=== PATIENT | female | born 1985 | race Caucasian/White ===

== ENCOUNTER 2018-05-03 06:10 | Observation (INO) | payer BC ==
[~2018-05-03] VITALS: Ht 165.1 cm; Wt 78.4 kg
[~2018-05-03 06:10] MED LIST: IBUP-1222 PO; PREN1TAB60 PO
[2018-05-03] MEDS ORDERED: ONDANSETRON 2MG/ML, 2ML IVPush ONE (06:30)
[2018-05-03] MEDS ORDERED: SODIUM CHLORIDE FLUSH 10ML SYR IVF ONE (06:30)
[2018-05-03] MEDS ORDERED: MORPHINE SULFATE 4 MG/ML, 1ML IVPush PRN ×3 (06:30→13:30)
[2018-05-03] MEDS ORDERED: SODIUM CHLORIDE 0.9% 1,000ML IVBOLUS ONE (06:30)
[2018-05-03] MEDS ORDERED: ONDANSETRON ODT 4 MG ONE (06:36)
[2018-05-03] MEDS ORDERED: MORPHINE SULFATE 4 MG/ML, 1ML ONE ×2 (06:36→14:17)
[2018-05-03 06:47] LABS: BASOPHILS % (AUTO) 0 % (0-1); EOSINOPHILS # (AUTO) 0.02 x10^3/uL (0-0.4); EOSINOPHILS % (AUTO) 0 % (1-7); LYMPHOCYTES # (AUTO) 1.12 x10^3/uL (1-3.4); LYMPHOCYTES % (AUTO) 7 % (22-44); MD NO; MEAN CORPUSCULAR HEMOGLOBIN 30.4 pg (27.0-34.8); MEAN CORPUSCULAR HGB CONC 33.3 g/dL (32.4-35.8); MEAN CORPUSCULAR VOLUME 91.5 fL (80-100); MEAN PLATELET VOLUME 8.4 fL (7.4-10.4); MONOCYTES % (AUTO) 3 % (2-9); NEUTROPHILS # (AUTO) 13.56 x10^3/uL (1.8-6.8); NEUTROPHILS % (AUTO) 89 % (42-75); PLATELET COUNT 207 x10^3/uL (130-400); RED BLOOD COUNT 4.29 x10^6/uL (3.82-5.3)
[2018-05-03 06:58] LABS: ALANINE AMINOTRANSFERASE 23 U/L (12-78); ALBUMIN 3.8 g/dL (3.4-5.0); ANION GAP 8 mmol/L (5-15); CALCIUM 8.4 mg/dL (8.5-10.1); CHLORIDE 108 mmol/L (98-107); CREATININE 0.63 mg/dL (0.55-1.02)
[2018-05-03 07:03] LABS: ALKALINE PHOSPHATASE 71 U/L (45-117); BILIRUBIN,TOTAL 0.5 mg/dL (0.2-1.0); TOTAL PROTEIN 7.8 g/dL (6.4-8.2)
[2018-05-03 08:12] LABS: MICROSCOPIC INDICATED
[2018-05-03 08:26] LABS: CULTURE INDICATED? NO
[2018-05-03] MEDS ORDERED: OMNIPAQUE 350 MG/ML, 100ML BOTTLE ONE (08:35)
[2018-05-03] MEDS ORDERED: CEFOTETAN PMX 1GM/50ML 50 ML ONE (09:32)
[2018-05-03] MEDS ORDERED: CEFOTETAN PMX 1GM/50ML 50 ML IV ONE (10:00)
[2018-05-03] MEDS ORDERED: POTASSIUM CHLORIDE 20 MEQ in D5%-0.45% NACL 1,000 ML IV ONE (10:00)
[2018-05-03 10:02] VITALS: BP 91/58
[2018-05-03] MEDS: D5%-0.45NACL+KCL 20MEQ 1,000 ML IV SCH ×4 (11:48→23:57)
[2018-05-03] MEDS ORDERED: BUPIVACAINE/PF 0.5% ONE (12:10)
[2018-05-03] MEDS ORDERED: EPINEPHRINE 1 MG/ML, 1ML ONE (12:10)
[2018-05-03] MEDS ORDERED: FENTANYL PF 250 MCG/5ML ONE (12:18)
[2018-05-03] MEDS ORDERED: MIDAZOLAM 1 MG/ML, 2ML ONE (12:18)
[2018-05-03] MEDS ORDERED: ROCURONIUM 10 MG/ML,10ML ONE (12:47)
[2018-05-03] MEDS ORDERED: PROPOFOL 10 MG/ML, 20ML ONE (12:58)
[2018-05-03] MEDS ORDERED: DEXAMETHASONE 4 MG/ML, 1ML ONE ×2 (12:58)
[2018-05-03] MEDS ORDERED: SUCCINYLCHOLINE 20 MG/ML, 10ML ONE (12:58)
[2018-05-03] MEDS ORDERED: ONDANSETRON 2MG/ML, 2ML ONE ×2 (12:58)
[2018-05-03] MEDS ORDERED: ACETAMINOPHEN 325 MG TABLET PO PRN ×2 (13:30→14:00)
[2018-05-03] MEDS ORDERED: EPHEDRINE 50 MG/ML, 1ML IM PRN (13:30)
[2018-05-03] MEDS ORDERED: DIPHENHYDRAMINE 50 MG/ML, 1ML IVPush PRN (13:30)
[2018-05-03] MEDS ORDERED: ONDANSETRON ODT 8 MG PO PRN (13:30)
[2018-05-03] MEDS ORDERED: PROMETHAZINE 12.5 MG SUPP PR PRN (13:30)
[2018-05-03] MEDS ORDERED: MIDAZOLAM 1 MG/ML, 2ML IV PRN (13:30)
[2018-05-03] MEDS ORDERED: OXYcodone 5 MG/5 ML ORAL.SOL UDC PO PRN (13:30)
[2018-05-03] MEDS ORDERED: MEPERIDINE/PF 25MG/0.5ML IVPush PRN (13:30)
[2018-05-03] MEDS ORDERED: PROMETHAZINE 25 MG/ML, 1ML IV PRN (13:30)
[2018-05-03] MEDS ORDERED: EPHEDRINE 50 MG/ML, 1ML IVPush PRN (13:30)
[2018-05-03] MEDS ORDERED: ACETAMINOPHEN 650 MG/20.3 ML UDC ONE (13:50)
[2018-05-03] MEDS ORDERED: OXYcodone 5 MG/5 ML ORAL.SOL UDC ONE (13:50)
[2018-05-03] MEDS ORDERED: FENTANYL PF 100 MCG/2ML ONE (13:50)
[2018-05-03] MEDS: FENTANYL PF 100 MCG/2ML IV PRN ×2 (13:52→14:07)
[2018-05-03] MEDS ORDERED: morphine SULFATE 10 MG/ML, 1ML IVPush PRN (14:00)
[2018-05-03] MEDS ORDERED: PROMETHAZINE 25 MG/ML, 1ML IM PRN (14:00)
[2018-05-03] MEDS ORDERED: ONDANSETRON 2MG/ML, 2ML IVPush PRN (14:00)
[2018-05-03 14:45] VITALS: BP 92/60
[2018-05-03] MEDS: CEFOTETAN PMX 1GM/50ML 50 ML IVPB SCH ×2 (16:10→20:51)
[2018-05-03 18:43] VITALS: BP 90/57
[2018-05-03] MEDS: ONDANSETRON 2MG/ML, 2ML IVPush PRN (19:13)
[2018-05-04 02:00] VITALS: BP 96/54
[2018-05-04] MEDS: D5%-0.45NACL+KCL 20MEQ 1,000 ML IV SCH ×3 (03:00→09:20)
[2018-05-04] MEDS: OXYcodone/APAP 7.5/325MG TABLET PO PRN ×2 (03:10→09:07)
[2018-05-04] MEDS: ONDANSETRON 2MG/ML, 2ML IVPush PRN (03:10)
[2018-05-04 05:06] LABS: BASOPHILS % (AUTO) 0 % (0-1); EOSINOPHILS % (AUTO) 0 % (1-7); LYMPHOCYTES # (AUTO) 0.98 x10^3/uL (1-3.4); LYMPHOCYTES % (AUTO) 8 % (22-44); MD NO; MEAN CORPUSCULAR HEMOGLOBIN 30.9 pg (27.0-34.8); MEAN CORPUSCULAR HGB CONC 33.5 g/dL (32.4-35.8); MEAN CORPUSCULAR VOLUME 92.2 fL (80-100); MEAN PLATELET VOLUME 8.6 fL (7.4-10.4); MONOCYTES # (AUTO) 0.54 x10^3/uL (0.2-0.8); MONOCYTES % (AUTO) 4 % (2-9); NEUTROPHILS # (AUTO) 11.22 x10^3/uL (1.8-6.8); NEUTROPHILS % (AUTO) 88 % (42-75); PLATELET COUNT 185 x10^3/uL (130-400)
[2018-05-04 07:34] VITALS: BP 85/55
[2018-05-04] MEDS: CEFOTETAN PMX 1GM/50ML 50 ML IVPB SCH (09:07)
[2018-05-04] MEDS ORDERED: OXYC-306 PO (11:50)
[2018-05-04] MEDS ORDERED: AMOX1TAB64 PO (11:52)
== END 2018-05-04 12:55 | disposition home or self-care (01) ==
LOC: ED 08:42 → EDIP 08:53 → INTOOBSV 08:53 → 4NOR 10:01 → DCLOUNGE 05-04 12:36
PROVIDERS: ADMIT Surgery; ATTEND Surgery
DX: K35.80 Unspecified acute appendicitis (principal); R11.2 Nausea with vomiting, unspecified
CPT/HCPCS: 36415; 44970; 74177; 76700; 80053; 81001; 83605; 83690; 84703; 85025; 87040; 88304; 96361; 96365; 96375; 96376; 99285; G0378; J0171; J0330; J1100; J2250; J2405; J2704; J3010; J3480; J3490; J7030; Q9967; S0074

== ENCOUNTER 2019-11-23 20:32 | Emergency (ER) | payer BC ==
[~2019-11-23] VITALS: Ht 167.6 cm; Wt 72.9 kg
[~2019-11-23 20:32] MED LIST changes: +AMOX1TAB64 PO; +OXYC-306 PO
--- NOTE | 2019-11-23 20:40 | NUR ---
PT AMB TO ROOM FROM TRIAGE W/ STEADY GAIT, NO ASSIST REQUIRED. PT UP TO RESTROOM FOR URINE SAMPLE AT THIS TIME.
--- NOTE | 2019-11-23 20:40 | NUR ---
THIS IS A 34Y F THAT COMES IN FOR ABD PAIN STARTING TODAY, PT STS IT WORSEN WHEN SHE EATS OR DRINKS BUT IS CONSTANT DESPITE OTC MEDICATIONS FOR PAIN. PT STS ABDOMEN IS SWOLLEN ELXCLUSIVELY ON R SIDE, SHE HAS HX OF APPY, UNK IF STILL HAS GALLBLADDER.
--- NOTE | 2019-11-23 20:48 | NUR ---
URINE SENT TO LAB
[2019-11-23 21:06] LABS: HCG UR SG 1.019 (1.003-1.030)
[2019-11-23 21:17] LABS: MICROSCOPIC INDICATED
[2019-11-23 21:18] LABS: CULTURE INDICATED? YES
[2019-11-23] MEDS ORDERED: ONDANSETRON 2MG/ML, 2ML IVPush ONE (21:30)
[2019-11-23] MEDS ORDERED: SODIUM CHLORIDE FLUSH 10ML SYR IVF ONE (21:30)
[2019-11-23] MEDS ORDERED: MORPHINE SULFATE 4 MG/ML, 1ML IVPush PRN (21:30)
[2019-11-23] MEDS ORDERED: ONDANSETRON 2MG/ML, 2ML ONE (21:36)
[2019-11-23] MEDS ORDERED: MORPHINE SULFATE 4 MG/ML, 1ML ONE (21:36)
[2019-11-23 21:45] LABS: BASOPHILS # (AUTO) 0.03 x10^3/uL (0-0.1); BASOPHILS % (AUTO) 0 % (0-1); EOSINOPHILS # (AUTO) 0.05 x10^3/uL (0-0.4); EOSINOPHILS % (AUTO) 1 % (1-7); LYMPHOCYTES # (AUTO) 1.48 x10^3/uL (1-3.4); LYMPHOCYTES % (AUTO) 20 % (22-44); MD NO; MEAN CORPUSCULAR HEMOGLOBIN 30.5 pg (27.0-34.8); MEAN CORPUSCULAR HGB CONC 32.9 g/dL (32.4-35.8); MEAN CORPUSCULAR VOLUME 92.6 fL (80-100); MEAN PLATELET VOLUME 8.4 fL (7.4-10.4); MONOCYTES # (AUTO) 0.51 x10^3/uL (0.2-0.8); MONOCYTES % (AUTO) 7 % (2-9); NEUTROPHILS # (AUTO) 5.44 x10^3/uL (1.8-6.8); NEUTROPHILS % (AUTO) 73 % (42-75); PLATELET COUNT 188 x10^3/uL (130-400); RED BLOOD COUNT 4.03 x10^6/uL (3.82-5.3); RED CELL DISTRIBUTION WIDTH 13.5 % (9.6-15.2)
--- NOTE | 2019-11-23 21:49 | NUR ---
PIV STARTED, PT MEDICATED PER MAR, VSS, NADN. AT BEDSIDE
[2019-11-23 21:56] LABS: ALANINE AMINOTRANSFERASE 15 U/L (12-78); ALBUMIN 3.1 g/dL (3.4-5.0); ANION GAP 5 mmol/L (5-15); CALCIUM 8.5 mg/dL (8.5-10.1); CHLORIDE 107 mmol/L (98-107); CREATININE 0.57 mg/dL (0.55-1.02)
[2019-11-23 21:58] LABS: ALKALINE PHOSPHATASE 74 U/L (45-117); BILIRUBIN,TOTAL 0.3 mg/dL (0.2-1.0); TOTAL PROTEIN 6.9 g/dL (6.4-8.2)
--- NOTE | 2019-11-23 23:50 | NUR ---
PT HYPOTENSIVE 86/48, UPDATED ADDITIONAL ORDERS RECIEVED. BOLUS STARTED.
[2019-11-24] MEDS ORDERED: SODIUM CHLORIDE 0.9% 1,000ML IVBOLUS ONE
[2019-11-24 00:42] VITALS: BP 90/64
--- NOTE | 2019-11-24 00:43 | NUR ---
PT BP 90/64, AWARE AND OK TO D/C HOME. Patient/Caregiver given discharge instructions and they have confirmed that they understand the instructions. Patient ambulatory with steady gait. IV D/C PRIOR TO PT DEPARTING UNIT
== END 2019-11-24 00:47 | disposition home or self-care (01) ==
LOC: ED 20:59
DX: N30.00 Acute cystitis without hematuria (principal); R19.7 Diarrhea, unspecified; R11.0 Nausea; R10.11 Right upper quadrant pain; R93.5 Abnormal findings on diagnostic imaging of other abdominal regions, including retroperitoneum; Z90.49 Acquired absence of other specified parts of digestive tract
CPT/HCPCS: 36415; 74176; 76700; 80053; 81001; 81025; 83690; 85025; 87086; 96361; 96374; 96375; 99284; J2270; J2405; J7030